=== PATIENT | male | born 1960 | race Caucasian/White ===

== ENCOUNTER 2018-11-10 17:58 | Emergency (ER) | payer SELFPAY ==
[~2018-11-10] VITALS: Ht 180.3 cm; Wt 80.0 kg
[2018-11-10 18:16] VITALS: BP 106/65
--- NOTE | 2018-11-10 18:25 | NUR ---
PT BIB EMS IN 4-POINT RESTRAINTS FROM HIS [facility] HOT ROOM FOR FOUND DOWN IN ROOM WITH 8 EMPTY VODKA BOTTLES, PER EMS. PT VERY MANIPULATIVE AND REFUSING TO ANSWER MOST QUESTIONS. PT STATES THAT HE HAS PAIN, BUT REFUSING TO SPEAK TO DR. OLIVEIRA. PER EMS, PATIENT WAS PUT INTO 4-POINT RESTRAINS FOR SAFETY CONCERNS, HE WAS TRYING TO MOVE OUT OF THEIR GURNEY. PATIENT PUT INTO 2-POINT RESTRAINTS FOR SAFETY HERE; R ARM AND L LEG. PT UNCOOPERATIVE AND REFUSING TO ANSWER QUESTIONS. PATIENT DID STATE, HOWEVER, "I DON'T KNOW WHAT I'M TRYING TO DO" WHEN ASKED BY DR. OLIVEIRA REGARDING ETOH AND ANY OTHER DRUG CONSUMPTION TODAY. VS STABLE. PATIENT IN NO DISTRESS. ONE-ON-ONE SITTER IN HALLWAY IN [id number] OF PATIENT.
[2018-11-10 18:47] LABS: BASOPHILS # (AUTO) 0.03 x10^3/uL (0-0.1); BASOPHILS % (AUTO) 0 % (0-1); EOSINOPHILS % (AUTO) 5 % (1-7); LYMPHOCYTES # (AUTO) 1.71 x10^3/uL (1-3.4); LYMPHOCYTES % (AUTO) 20 % (22-44); MD NO; MEAN CORPUSCULAR HEMOGLOBIN 30.1 pg (27.5-34.5); MEAN CORPUSCULAR HGB CONC 34.1 g/dL (33.2-36.2); MEAN CORPUSCULAR VOLUME 88.3 fL (81-97); MEAN PLATELET VOLUME 7.1 fL (7.4-10.4); MONOCYTES % (AUTO) 7 % (2-9); NEUTROPHILS # (AUTO) 5.74 x10^3/uL (1.8-6.8); NEUTROPHILS % (AUTO) 68 % (42-75); PLATELET COUNT 175 x10^3/uL (130-400); RED BLOOD COUNT 5.81 x10^6/uL (4.38-5.82); RED CELL DISTRIBUTION WIDTH 14.1 % (9.4-14.8)
[2018-11-10 18:57] LABS: ALANINE AMINOTRANSFERASE 376 U/L (12-78); ALBUMIN 3.8 g/dL (3.4-5.0); ANION GAP 13 mmol/L (5-15); CHLORIDE 104 mmol/L (98-107); CREATININE 0.81 mg/dL (0.7-1.3); SALICYLATE LEVEL 4.3 mg/dL (2.8-20.0)
[2018-11-10 18:59] LABS: ALKALINE PHOSPHATASE 87 U/L (45-117); BILIRUBIN,TOTAL 0.8 mg/dL (0.2-1.0); TOTAL PROTEIN 7.2 g/dL (6.4-8.2)
[2018-11-10 19:05] LABS: ACETAMINOPHEN < 2 mcg/mL (10-30)
--- NOTE | 2018-11-10 19:19 | NUR ---
REPORT RCV'D FROM ELINOR ARREDONDO. CARE ASSUMED. PT IS IN GURNEY. RESTRAINTS TO RUE AND LLE. CMS INTACT. PT IS GRABBING GENITALS, DEMANDING PAIN MEDS, HAS PULLED OUT IV AND SAYS, "FUCK YOU."
--- NOTE | 2018-11-10 19:50 | NUR ---
CRITCAL ETOH LEVEL RCV'D AND REPORTED TO DR OLIVEIRA. PT REMAINS AWAKE AND AGITATED.
--- NOTE | 2018-11-10 20:50 | NUR ---
Pt walking with steady gait. Pt dressed and offered shoes and heavy jacket and pt refused. t given socks and clean shirt. Pt not wanting to leave because he wants to stay "because he needs a nice bed for a few days" pt has been medically cleared by dr. colorado and [facility] and is a/ox4. Pt laid in bed and refused to get out of bed becuase he wanted to sleep. Pt encouraged multiple times to not lay in bed and please get dressed. informed pt we would provide a cab voucher to desired location. pt reported he is homeless and has no where to go. Pt then recieved cab voucher to [address] [facility] to hae safe dc. Pt had to be escorted out by security due to refusal to leave. Pt given voucher and dc instructions. Pt then escorted out by security. Patient/Caregiver given discharge instructions and they have confirmed that they understand the instructions. Patient ambulatory with steady gait.
--- NOTE | 2018-11-13 23:29 | NUR ---
PT CALLED INQUIRING ABOUT HIS SYNTHROID THAT HE BELIEVED HE LEFT HERE DURING HIS VISIT. NO NOTES IN CHART MENTION MEDICATIONS BEING PRESENT. PHARMACY WAS CALLED WHO CHECKED AND DOES NOT HAVE PTS MEDS. SECURITY WAS CALLED AND THEY ALSO HAVE NO BELONGINGS FOR THE PT.
== END 2018-11-10 20:59 | disposition home or self-care (01) ==
LOC: ED 19:57
DX: F10.220 Alcohol dependence with intoxication, uncomplicated (principal); K70.10 Alcoholic hepatitis without ascites; F17.200 Nicotine dependence, unspecified, uncomplicated
CPT/HCPCS: 36415; 80053; 80307; 80329; 83690; 85025; 99283; G0480